=== PATIENT | male | born 1960 | race Caucasian/White ===

== ENCOUNTER 2021-09-13 21:26 | Inpatient (IN) ==
[2021-09-13] MEDS ORDERED: *HR* Midazolam HCl 2 MG/2 ML VIAL ONE (22:01)
[2021-09-13] MEDS ORDERED: *HR* FentaNYL (PF) 100 MCG/2 ML VIAL ONE (22:01)
[2021-09-13] MEDS ORDERED: 0.9 % Sodium Chloride 1,000 ML ONE (22:02)
[2021-09-13] MEDS ORDERED: *HR* Heparin 10,000 UNIT/10 ML VIAL ONE (22:02)
[2021-09-13] MEDS ORDERED: Heparin 1,000 UNITS/500 mL 500 ML ONE (22:02)
[2021-09-13] MEDS ORDERED: ISOVUE-370 200 ML INFUS..BTL ONE (22:02)
[2021-09-13] MEDS ORDERED: Nitroglycerin 1,000 MCG/5 ML VIAL IV ONE (22:02)
[2021-09-13] MEDS ORDERED: Isovue-370 500 ML BOTTLE IVP ONE (23:37)
[2021-09-14] MEDS ORDERED: *HR* Ticagrelor 90 MG TABLET ONE (00:59)
[2021-09-14] MEDS ORDERED: Perflutren Lipid Microsphere 1.3 ML in 0.9 % Sodium Chloride 8.7 ML IVP PRN (01:23)
[2021-09-14] MEDS ORDERED: Tirofiban 12.5 MG/250ML 12.5 MG/250 ML BAG IVC SCH (01:30)
[2021-09-14] MEDS ORDERED: carvediloL 6.25 MG TABLET PO SCH (02:00)
[2021-09-14] MEDS: 0.9 % Sodium Chloride 500 ML IVC SCH ×2 (02:19→11:04)
[2021-09-14 06:02] LABS: Basophils % 0.2 %; Eosinophils % 0.1 %; Hematocrit 47.9 % (37.5-50.1); Hemoglobin 16.4 g/dL (12.9-16.9); Immature Granulocytes % 0.4 % (0-4); Lymphocytes # 1.4 K/mcL (0.6-4.6); Lymphocytes % 12.5 %; Mean Corpuscular HGB Conc 34.2 g/dL (31.6-35.5); Mean Corpuscular Hemoglobin 33.7 pg (28.0-33.3); Mean Corpuscular Volume 98.4 fL (83.0-100.0); Mean Platelet Volume 8.9 fL (9.4-12.4); Monocytes # 0.6 K/mcL (0.0-1.3); Monocytes % 5.7 %; Neutrophils # 9.2 K/mcL (1.6-8.9); Platelet Count 262 K/mcL (140-400); Red Blood Count 4.87 M/mcL (4.19-5.50); Red Cell Distribution Width 15.9 % (11.5-14.5); Segmented Neutrophils % 81.1 %; White Blood Count 11.3 K/mcL (4.3-11.1)
[2021-09-14 06:29] LABS: BUN/Creatinine Ratio 13 (6-26); Blood Urea Nitrogen 10 mg/dL (6-20); Calcium 9.4 mg/dL (8.6-10.3); Carbon Dioxide 23 mEq/L (23-29); Chloride 104 mEq/L (98-107); Chol/HDL Ratio 5.4 (0-4.9); Cholesterol 226 mg/dL (< 200); Glucose 117 mg/dL (70-105); HDL Cholesterol 42 mg/dL (40-59); LDL Cholesterol,Calculated 106 mg/dL (< 100); Osmolality,Calculated 286 (280-300); Potassium 3.5 mEq/L (3.5-5.1); Sodium 138 mEq/L (136-145); Triglycerides 392 mg/dL (< 150); Troponin I 13.32 ng/mL (< 0.04); eGFR For African Americans > 60 (> 60); eGFR For Non-African Americans > 60 (> 60)
[2021-09-14] MEDS: Aspirin 81 MG TAB.CHEW PO SCH (07:34)
[2021-09-14] MEDS ORDERED: carvediloL 6.25 MG TABLET PO ONE (08:00)
[2021-09-14 09:41] LABS: Estimated Average Glucose 126 mg/dl
[2021-09-14] MEDS ORDERED: lisinopriL 5 MG TABLET PO SCH (10:05)
[2021-09-14] MEDS: *HR* Ticagrelor 90 MG TABLET PO SCH ×2 (11:03→19:30)
[2021-09-14] MEDS: carvediloL 6.25 MG TABLET PO SCH (16:32)
[2021-09-15] MEDS: *HR* Ticagrelor 90 MG TABLET PO SCH ×2 (07:41→19:21)
[2021-09-15] MEDS: lisinopriL 5 MG TABLET PO SCH (07:41)
[2021-09-15] MEDS: Aspirin 81 MG TAB.CHEW PO SCH (07:41)
[2021-09-15] MEDS: carvediloL 6.25 MG TABLET PO SCH ×2 (07:42→16:17)
[2021-09-16 06:46] VITALS: BP 125/72; TEMP 98; O2SAT 95
[2021-09-16] MEDS: lisinopriL 5 MG TABLET PO SCH (07:30)
[2021-09-16] MEDS: carvediloL 6.25 MG TABLET PO SCH (07:30)
[2021-09-16] MEDS: *HR* Ticagrelor 90 MG TABLET PO SCH (07:30)
[2021-09-16] MEDS: Aspirin 81 MG TAB.CHEW PO SCH (07:30)
[2021-09-16 07:37] VITALS: PULSE 74
== END 2021-09-16 11:12 | disposition home or self-care (01) | DRG 174 ==
LOC: 2NNU 09-14 00:43
PROVIDERS: ADMIT Internal Medicine Cardiovascular Disease; ATTEND Internal Medicine Cardiovascular Disease